=== PATIENT | male | born 1945 | race Caucasian/White ===

== ENCOUNTER 2023-03-19 11:59 | Emergency (ER) | payer OTHER ==
[~2023-03-19] VITALS: Ht 177.8 cm; Wt 68.0 kg
[2023-03-19 12:00] VITALS: BP_SYST 131; PULSE 65; RESP 18; TEMP 97.2; O2SAT 97
[2023-03-19 12:53] LABS: BASOPHILS % (AUTO) 0.9 % (0.0-2.0); EOSINOPHILS % (AUTO) 1.1 % (0.0-4.0); HEMATOCRIT 31.5 % (36-54); HEMOGLOBIN 10.4 g/dL (14.0-18.0); LYMPHOCYTES # (AUTO) 1.1 K/uL (1.0-5.5); LYMPHOCYTES % (AUTO) 28.3 % (20.5-51.5); MEAN CORPUSCULAR HEMOGLOBIN 30 pg (27-31); MEAN CORPUSCULAR HGB CONC 33 % (32-36); MEAN CORPUSCULAR VOLUME 91 fL (79.0-98.0); MONOCYTES # (AUTO) 0.4 K/uL (0.0-1.0); MONOCYTES % (AUTO) 10.5 % (1.7-9.3); NEUTROPHILS # (AUTO) 2.4 K/uL (1.8-7.7); NEUTROPHILS % (AUTO) 59.2 % (40.0-70.0); PLATELET COUNT (AUTO) 159 K/uL (130-430); RED BLOOD CELL COUNT(AUTO) 3.46 MIL/uL (4.2-6.2); RED CELL DISTRIBUTION WIDTH 18.2 % (9.0-15.0)
[2023-03-19 13:06] LABS: ANION GAP 10 (5-15); CALCIUM 8.8 mg/dL (8.4-11.0); CARBON DIOXIDE 27 mmol/L (23-29); CHLORIDE 103 mmol/L (98-107); CREATININE 0.78 mg/dL (0.55-1.30); GLUCOSE 99 mg/dL (74-106); POTASSIUM 3.5 mmol/L (3.5-5.1); SODIUM SERUM 140 mmol/L (136-145); UREA NITROGEN, BLOOD 10 mg/dL (8-21)
[2023-03-19 13:07] LABS: INR 1.1 (0.80-1.20); PROTHROMBIN TIME 11.8 SECS (9.5-12.5)
[2023-03-19 13:20] LABS: ALANINE AMINOTRANSFERASE 16 U/L (12-78); ALBUMIN 2.8 g/dL (3.4-4.8); ASPARTATE AMINOTRANSFERASE 42 U/L (10-37); BILIRUBIN,DIRECT 0.4 mg/dL (0.0-0.3); FREE T4 (FREE THYROXINE) 0.9 ng/dL (0.6-1.6); THYROID STIMULATING HORMONE 3.86 uIu/mL (0.34-4.82); TOTAL BILIRUBIN 0.7 mg/dL (0.0-1.0); TOTAL PROTEIN, SERUM 7.4 g/dL (6.4-8.3)
[2023-03-19] MEDS ORDERED: cephALEXin 500 MG CAPSULE PO ONE (14:45)
[2023-03-19] MEDS ORDERED: CEPH-548 PO (14:45)
[2023-03-19 15:38] VITALS: BP_SYST 151; PULSE 79; RESP 16; TEMP 98; O2SAT 95
== END 2023-03-19 21:11 | disposition home or self-care (01) ==
LOC: SED 11:59
DX: L03.221 Cellulitis of neck (principal); R22.1 Localized swelling, mass and lump, neck; E78.5 Hyperlipidemia, unspecified; Z85.828 Personal history of other malignant neoplasm of skin; Z79.899 Other long term (current) drug therapy
CPT/HCPCS: 99284; 70491; 80076; 80048; 84439; 84443; 85025; 85610; 85730; 36415; 76376; 83605; 82397; Q9967